=== PATIENT | female | born 1995 | race Caucasian/White ===

== ENCOUNTER 2020-02-14 08:47 | Emergency (ER) | payer SELFPAY ==
[~2020-02-14] VITALS: Ht 152 cm; Wt 53.6 kg
[2020-02-14 08:59] VITALS: BP 133/76
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
== END 2020-02-14 09:19 | disposition left against medical advice (07) ==
LOC: ER FS 08:49
DX: S00.12XA Contusion of left eyelid and periocular area, initial encounter (principal); S10.91XA Abrasion of unspecified part of neck, initial encounter; R51 Headache; Y09 Assault by unspecified means; Y92.511 Restaurant or cafe as the place of occurrence of the external cause
CPT/HCPCS: 99282

== ENCOUNTER 2020-07-01 11:57 | Emergency (ER) | payer OTHER ==
[~2020-07-01] VITALS: Ht 154 cm; Wt 55.0 kg
[2020-07-01 12:00] VITALS: BP 129/97
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
== END 2020-07-01 12:26 | disposition home or self-care (01) ==
LOC: EDUNIT# 11:57 → ER FS 11:58
DX: Z04.3 Encounter for examination and observation following other accident (principal); F41.9 Anxiety disorder, unspecified; Z77.22 Contact with and (suspected) exposure to environmental tobacco smoke (acute) (chronic); V89.2XXA Person injured in unspecified motor-vehicle accident, traffic, initial encounter
CPT/HCPCS: 99283